=== PATIENT | male | born 1940 | race Caucasian/White ===

== ENCOUNTER → 2016-07-23 | Outpatient (CLI) | payer MEDICARE ==
[2016-07-23 12:55] LABS: HEMOGLOBIN 14.3 g/dL (14.1-18.0); LYMPH # 1.7 K/mm3 (0.7-4.5); LYMPH % 22.3 % (10-50)
[2016-07-23 13:27] LABS: BUN 21 mg/dL (7-18); PROSTATE-SPECIFIC AG SCREEEN 1.6 ng/mL (0.0-4.0)
[2016-07-23 13:29] LABS: GFR (ESTIMATED) 65 ML/MIN (>60)
[2016-07-24 10:40] LABS: Creatinine, Urine 291.7 mg/dL (Not Estab.); Microalbumin, Urine 132.3 ug/mL (Not Estab.)
== END ==
LOC: LAB 12:14
PROVIDERS: Nurse Practitioner Family
DX: M06.9 Rheumatoid arthritis, unspecified (principal); Z79.899 Other long term (current) drug therapy; M19.049 Primary osteoarthritis, unspecified hand; E11.9 Type 2 diabetes mellitus without complications; R35.1 Nocturia; N40.1 Benign prostatic hyperplasia with lower urinary tract symptoms; M05.79 Rheumatoid arthritis with rheumatoid factor of multiple sites without organ or systems involvement; E78.00 Pure hypercholesterolemia, unspecified; Z12.5 Encounter for screening for malignant neoplasm of prostate
CPT/HCPCS: G0103

== ENCOUNTER → 2016-11-27 | Outpatient (CLI) | payer MEDICARE ==
[2016-11-27 10:03] LABS: HEMOGLOBIN 13.8 g/dL (14.1-18.0); LYMPH # 1.4 K/mm3 (0.7-4.5); LYMPH % 28.1 % (10-50)
[2016-11-27 11:11] LABS: BILIRUBIN, INDIRECT 0.47 mg/dL (0-0.9)
[2016-11-27 11:16] LABS: GFR (ESTIMATED) 59 ML/MIN (>60)
== END ==
LOC: LAB 09:29
PROVIDERS: Internal Medicine Rheumatology
DX: M06.9 Rheumatoid arthritis, unspecified (principal); M19.071 Primary osteoarthritis, right ankle and foot; Z79.899 Other long term (current) drug therapy

== ENCOUNTER → 2017-02-18 | Outpatient (CLI) | payer MEDICARE ==
[2017-02-18 09:37] LABS: LYMPH # 1.9 K/mm3 (0.7-4.5); LYMPH % 27.9 % (10-50)
[2017-02-18 09:44] LABS: HEMOGLOBIN 15.6 g/dL (14.1-18.0)
[2017-02-18 11:08] LABS: BILIRUBIN, INDIRECT 0.54 mg/dL (0-0.9)
[2017-02-18 11:10] LABS: GFR (ESTIMATED) 59 ML/MIN (>60)
== END ==
LOC: LAB 09:10
PROVIDERS: Internal Medicine Rheumatology
DX: M06.9 Rheumatoid arthritis, unspecified (principal); M19.071 Primary osteoarthritis, right ankle and foot; Z79.899 Other long term (current) drug therapy